=== PATIENT | female | born 1975 | race Caucasian/White ===

== ENCOUNTER 2024-03-09 08:02 | Emergency (ER) | payer MEDICAID ==
[2024-03-09 08:17] VITALS: BP 151/110; O2SAT 100
--- NOTE | 2024-03-09 08:31 | ED Physician Documentation ---
History of Present Illness - Stated complaint Stated Complaint: LOWER BCK PX/RT LEG PX - Chief complaint Chief Complaint: Ext Problem - History obtained from History obtained from: Patient - Additonal information Additional information: She presents with a week of right-sided sciatica which he has had before. Pain is in the low back and radiating into the buttock and posterior thigh. Is worse with twisting or bending. There was no injury. She denies weakness, numbness, tingling, saddle anesthesia, fevers, IV drug use. She does tell me about a more chronic issue going on for over a year where she broke ribs related to a cough related to COVID and since then has random pains usually in her chest that feel like a band snapping. She just moved from [place] where she was seeing a nurse practitioner who is treating this and planning to refer her to spine surgery which has not been done and she queries as to local spine surgeons. 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) HEENT: Tonsil/Adenoidectomy - Present Medications Home Medications: Ambulatory Orders Medication Instructions Recorded Confirmed Ibuprofen 600 mg PO Q6HR PRN #20 tablet 05/13/14 12/06/14 Duloxetine HCl [Cymbalta] 60 mg PO 06/01/16 Carisoprodol [Soma] 350 mg PO QID PRN #12 tablet 03/09/24 Oxycodone HCl/Acetaminophen 1 - 2 each PO Q6H PRN #14 tablet 03/09/24 [Percocet 5-325 mg Tablet] predniSONE [Deltasone] 20 mg PO [id number] #21 tab 03/09/24 - Allergies Allergies/Adverse Reactions: Allergies Allergy/AdvReac Type Severity Reaction Status Date / Time Penicillins Allergy Intermediate Itching Verified 03/09/24 08:15 Sulfa (Sulfonamide Allergy Mild mouth sores Verified 03/09/24 08:15 Antibiotics) - Social History Does the pt smoke?: Yes Smoking Status: Current every day smoker Does the pt drink ETOH?: Yes Does the pt have substance abuse?: No - Immunizations Immunizations are current?: No Immunizations: TDAP >10years/unknown - POLST Patient has POLST: No PD ED PE NORMAL - Vitals Vital signs reviewed: Yes - General General: Alert and oriented X 3, No acute distress - Cardiac Cardiac: RRR, No murmur - Respiratory Respiratory: No respiratory distress, Clear bilaterally - Abdomen Abdomen: Normal bowel sounds, Soft, Non tender - Back Back: No spinal TTP, Other (The patient has equal and normal Achilles and yanez llar reflexes bilaterally. Normal sensation in all areas of the legs. Patient denies saddle anesthesia. Normal strength in flexion-extension at the ankles, knees, and flexion of the hips.) Results - Vitals Vitals: Vital Signs - 24 hr 03/09/24 08:10 Temperature 36.4 C L Heart Rate 116 H Respiratory 18 Rate Blood Pressure 151/110 H O2 Saturation 100 Oxygen O2 Source Room air PD Medical Decision Making - ED course ED course: This patient has seemingly uncomplicated musculoskeletal back pain. The patient has no "red flags." Specifically denies IV drug use, fevers, incontinence, saddle anesthesia. Spinal epidural abscess was considered, given that the patient has no fever, is not diabetic, has no spinal tenderness, does not use IV drugs, and has no bilateral neurologic symptoms, the diagnosis of spinal epidural abscess is considered exceedingly unlikely. Departure - Departure Disposition: 01 Home, Self Care Clinical Impression: Sciatica Condition: Good Record reviewed to determine appropriate education?: Yes Instructions: ED Sciatica Prescriptions: predniSONE [Deltasone] 20 mg PO [id number] #21 tab Oxycodone HCl/Acetaminophen [Percocet 5-325 mg Tablet] 1 - 2 each PO Q6H PRN #14 tablet PRN Reason: pain Carisoprodol [Soma] 350 mg PO QID PRN #12 tablet PRN Reason: Spasms Comments: I sent your prescriptions electronically to the [facility] in [place]. For your more chronic issues, 2 spine surgeons I like in the area are: 1. Jesus Waggoner DO in [place] 2. Jagdeep Leahy MD in [place]. Call your doctor to arrange a follow-up appointment, make the next available appointment. In the interim, return anytime if worse or if new symptoms develop. I am prescribing a short course of narcotic pain medication for you. These are potentially dangerous and addictive medications that should be used carefully. These medications may constipate you. Take an maxg-ont-fmukbdo stool softener (docusate) twice daily with plenty of water while taking these medications. If you go 24 hours without a bowel movement, take ysih-lbq-wlsxmbj miralax, per package instructions. Do not drink or drive while taking these medications. If you received narcotic or sedating medications while in the emergency department, do not drive for 24 hours. Store this medication in a safe, secure place and out of reach of children. It is a violation of federal law to give or sell this medication to another person or to use in a manner other than prescribed. The ED will not refill narcotic prescriptions, including prescriptions lost or stolen. To dispose of unwanted medications: 1. [facility] provides a drop box for medication in pill form only (no liquids) 8:00 am to 4:30 p.m. Sunday-Sunday in the lobby of the [facility], [address] [place] [address]. Empty pills into ziplock bag before disposal. Call [phone] for information. 2.[employer] is a free service available to all [facility] residents. Go to [email or web address] Note that many narcotic pain relievers also contain Tylenol/acetaminophen. Please ensure that your total dose of acetaminophen from all sources does not exceed 3 g (3000 mg) per day. Forms: PCP List
== END 2024-03-09 08:39 | disposition home or self-care (01) ==
LOC: ED 08:02
DX: M54.41 Lumbago with sciatica, right side (principal); F17.200 Nicotine dependence, unspecified, uncomplicated
CPT/HCPCS: 99283

== ENCOUNTER 2024-03-26 07:58 | Emergency (ER) | payer MEDICAID ==
--- NOTE | 2024-03-26 08:20 | ED Physician Documentation ---
PD HPI URI - Stated complaint Stated Complaint: COUGHING, DIFFICULTY BREATHING, CHEST PX - Chief complaint Chief Complaint: Resp - History obtained from History obtained from: Patient - History of Present Illness Timing - onset: Yesterday, How many days ago (2) Timing duration: Days (2) Timing details: Abrupt onset, Still present Associated symptoms: Chills, Nasal congestion, Dry cough, Dyspnea, NVD Contributing factors: Sick contact, COPD / asthma. No: Immunocompromised Recently seen: Emergency Dept (for knee pain) Review of Systems Constitutional: reports: Chills, Myalgias, Fatigue Nose: reports: Rhinorrhea / runny nose, Congestion Throat: reports: Sore throat Respiratory: reports: Cough GI: reports: Nausea. denies: Vomiting, Diarrhea Neurologic: reports: Generalized weakness. 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) HEENT: Tonsil/Adenoidectomy - Present Medications Home Medications: Ambulatory Orders Medication Instructions Recorded Confirmed Ibuprofen 600 mg PO Q6HR PRN #20 tablet 05/13/14 03/26/24 Carisoprodol [Soma] 350 mg PO QID PRN #12 tablet 03/09/24 03/26/24 Oxycodone HCl/Acetaminophen 1 - 2 each PO Q6H PRN #14 tablet 03/09/24 03/26/24 [Percocet 5-325 mg Tablet] Albuterol Sulf [Ventolin Hfa 2 puffs INH QID #1 each 03/26/24 Inhaler] Benzonatate [Tessalon] 100 mg PO TID PRN #20 cap 03/26/24 Doxycycline Monohydrate [Avidoxy] 100 mg PO BID 03/26/24 03/26/24 Fluticasone Propion/Salmeterol 1 each IH BID #1 each 03/26/24 [Fluticasone-Salmeterol 250-50] Gabapentin [Neurontin] 600 mg PO TID 03/26/24 03/26/24 HYDROcod/ACETAM 5/325 [Sturkie 5/325] 1 ea PO Q6H PRN #20 tablet 03/26/24 Ibuprofen [Motrin] 600 mg PO TID PRN #25 tab 03/26/24 Losartan Potassium 50 mg PO DAILY 03/26/24 03/26/24 Lovastatin 10 mg PO DAILY 03/26/24 03/26/24 Ondansetron Odt [Zofran] 4 mg TL Q6H PRN #20 tablet 03/26/24 dexAMETHasone [Decadron] 4 mg PO DAILY #7 tablet 03/26/24 tiZANidine [Zanaflex] 4 mg PO TID 03/26/24 03/26/24 - Allergies Allergies/Adverse Reactions: Allergies Allergy/AdvReac Type Severity Reaction Status Date / Time Penicillins Allergy Intermediate Itching Verified 03/26/24 08:15 Sulfa (Sulfonamide Allergy Mild mouth sores Verified 03/26/24 08:15 Antibiotics) - Social History Does the pt smoke?: Yes Smoking Status: Current every day smoker Does the pt drink ETOH?: Yes Does the pt have substance abuse?: No - Immunizations Immunizations are current?: No Immunizations: TDAP >10years/unknown - POLST Patient has POLST: No PD ED PE NORMAL - Vitals Vital signs reviewed: Yes - General General: Alert and oriented X 3, No acute distress, Well developed/nourished - HEENT HEENT: Pharynx benign - Neck Neck: Supple, no meningeal sign, No adenopathy - Cardiac Cardiac: RRR, No murmur - Respiratory Respiratory: Clear bilaterally - Abdomen Abdomen: Soft, Non tender - Derm Derm: Normal color, Warm and dry Results - Vitals Vitals: Vital Signs - 24 hr 03/26/24 10:52 Temperature 36.5 C Heart Rate 103 H Respiratory 20 Rate Blood Pressure 113/74 O2 Saturation 100 Oxygen O2 Source Room air - Labs Labs: Laboratory Tests 03/26/24 09:02 Nasal Adenovirus (PCR) NOT DETECTED Nasal B. parapertussis DNA (PCR) NOT DETECTED Nasal Coronavir 229E PCR NOT DETECTED Nasal Coronavir HKU1 PCR NOT DETECTED Nasal Coronavir NL63 PCR NOT DETECTED Nasal Coronavir OC43 PCR NOT DETECTED Nasal Enterovir/Rhinovir PCR DETECTED A Nasal Influenza B PCR NOT DETECTED Nasal Influenza A PCR NOT DETECTED Nasal Parainfluen 1 PCR NOT DETECTED Nasal Parainfluen 2 PCR NOT DETECTED Nasal Parainfluen 3 PCR NOT DETECTED Nasal Parainfluen 4 PCR NOT DETECTED Nasal RSV (PCR) NOT DETECTED Nasal B.pertussis DNA PCR NOT DETECTED Nasal C.pneumoniae (PCR) NOT DETECTED Mark Human Metapneumo PCR NOT DETECTED Nasal M.pneumoniae (PCR) NOT DETECTED Nasal SARS-CoV-2 (PCR) NOT DETECTED - Rads (name of study) chest Relevant Findings:: Prelim report reviewed (minimal bibasilar atelectasis), EMP independent interpretation of test PD Medical Decision Making - ED course Complexity details: reviewed results (chest xray and viral panel: Rhinovirus. ), considered differential, d/w patient Departure - Departure Disposition: Home, Self Care Clinical Impression: Upper respiratory infection, Reactive airway disease with acute exacerbation, Acute costochondritis Condition: Stable Record reviewed to determine appropriate education?: Yes Instructions: ED URI Viral W Wheezing Prescriptions: dexAMETHasone [Decadron] 4 mg PO DAILY #7 tablet Fluticasone Propion/Salmeterol [Fluticasone-Salmeterol 250-50] 1 each IH BID #1 each Ibuprofen [Motrin] 600 mg PO TID PRN #25 tab PRN Reason: Pain HYDROcod/ACETAM 5/325 [Sturkie 5/325] 1 ea PO Q6H PRN #20 tablet PRN Reason: Pain Benzonatate [Tessalon] 100 mg PO TID PRN #20 cap PRN Reason: Cough Albuterol Sulf [Ventolin Hfa Inhaler] 2 puffs INH QID #1 each Ondansetron Odt [Zofran] 4 mg TL Q6H PRN #20 tablet PRN Reason: Nausea / Vomiting Comments: Your chest x-ray does not show any pneumonia. There is some not full expansion in the lower parts presume consistent with the costochondritis and hurting to take deep breaths. Hopefully use of the inhaler as well as some anti-inflammatories and pain medicine will help with that so that you get better airflow and less trouble breathing. Use the albuterol inhaler 2 to 3 puffs 4 times daily regularly for the next week to 10 days. Decadron steroid anti-inflammatory daily for a week. Add benzonatate/Tessalon if needed for cough. He would likely benefit from a baseline longer-term inhaler as well so I wrote for 1 called Advair (fluticasone/salmeterol (. Tylenol every 4-6 hours if needed for pains or hydrocodone/acetaminophen if needed for worse pain. This can also be used as a cough suppressant 2. Small frequent fluids and stay well-hydrated. Ondansetron if needed for nausea. I sent your prescriptions to the [facility] pharmacy. Follow-up with primary care as an planned. Your respiratory viral panel test is still pending. We can call you with the results when we get them. I am prescribing a short course of narcotic pain medication for you. These are potentially dangerous and addictive medications that should be used carefully. These medications may constipate you. Take an zuwl-lcv-tjvsvzh stool softener such as docusate twice daily with plenty of water while taking these medications. If you go 24 hours without a bowel movement, take ruwq-grr-eihldqn MiraLAX, per package instructions. Do not drink or drive while taking these medications. If you received narcotic or sedating medications while in the emergency department do not drive for 24 hours. Store this medication in a safe, secure place and out of reach of children. It is a violation of federal law to give or sell this medication to another person or to use in a manner other than prescribed. The ED will not refill narcotic prescriptions, including prescriptions lost or stolen. You can dispose of unwanted medications at the [facility]'s office or at several pharmacies such as [facility]. Forms: PCP List Discharge Date/Time: 03/26/24 10:53
[2024-03-26] MEDS: ONDANSETRON ODT 4 MG TABLET TL STA (08:59)
[2024-03-26] MEDS: dexAMETHasone 4 MG TABLET PO STA (08:59)
[2024-03-26] MEDS: oxyCODONE 5 MG TABLET PO STA (08:59)
[2024-03-26] MEDS: diphenhydrAMINE ELIXIR 25 MG/10 ML UDC PO STA (09:00)
[2024-03-26] MEDS: IPRATROPIUM/ALBUTEROL 3 ML NEB INH STA (09:04)
--- NOTE | 2024-03-26 09:14 | XRAY Report ---
PROCEDURE: Chest 1V INDICATIONS: cough/dyspnea TECHNIQUE: One view of the chest was acquired. COMPARISON: 12/16/2014. FINDINGS: Surgical changes and devices: None. Lungs and pleura: No pleural effusions or pneumothorax. Minimal patchy bibasilar atelectasis. Mediastinum: Mediastinal contours appear normal. Heart size is normal. Bones and chest wall: No suspicious bony lesions. Overlying soft tissues appear unremarkable. IMPRESSION: Minimal patchy bibasilar atelectasis. Reviewed by: Damon Pace MD on 03/26/2024 9:13 AM PDT Approved by: Damon Pace MD on 03/26/2024 9:13 AM PDT Station ID: [id number]
[2024-03-26 10:04] LABS: B. PARAPERTUSSIS- RESP PCR PAN NOT DETECTED; B. PERTUSSIS- RESP PCR PANEL NOT DETECTED; C. PNEUMONIAE- RESP PCR PANEL NOT DETECTED; CORONAVIRUS 229E-RESP PCR NOT DETECTED; CORONAVIRUS HKU1-RESP PCR NOT DETECTED; CORONAVIRUS NL63-RESP PCR NOT DETECTED; CORONAVIRUS OC43-RESP PCR NOT DETECTED; HUMAN METAPNEUMOVIRUS NOT DETECTED; INFLUENZA A- RESP PCR PANEL NOT DETECTED; INFLUENZA B - RESP PCR PANEL NOT DETECTED; M. PNEUMONIAE- RESP PCR PANEL NOT DETECTED; PARAINFLUENZA VIRUS 1 NOT DETECTED; PARAINFLUENZA VIRUS 2 NOT DETECTED; PARAINFLUENZA VIRUS 3 NOT DETECTED; PARAINFLUENZA VIRUS 4 NOT DETECTED; RHINOVIRUS/ENTEROVIRUS DETECTED; RSV- RESP PCR PANEL NOT DETECTED; SARS-CoV-2 -RESP PCR PANEL NOT DETECTED
[2024-03-26 11:02] VITALS: BP 113/74; O2SAT 100
== END 2024-03-26 10:53 | disposition home or self-care (01) ==
LOC: ED 07:58
DX: M94.0 Chondrocostal junction syndrome [Tietze] (principal); J45.909 Unspecified asthma, uncomplicated; J06.9 Acute upper respiratory infection, unspecified; B34.8 Other viral infections of unspecified site; F17.200 Nicotine dependence, unspecified, uncomplicated
CPT/HCPCS: 71045; 87633; 94640; 94664; 99283; 99284; A9270; J8540; Q0162

== ENCOUNTER 2025-01-13 01:02 | Observation (INO) ==
[2025-01-13] MEDS ORDERED: iohexoL-300 100 ML VIAL ONE (01:45)
[2025-01-13 02:03] LABS: BASOPHILS % (AUTO) 0.4 %; EOSINOPHILS # (AUTO) 0.2 10^3/uL (0.0-0.7); EOSINOPHILS % (AUTO) 1.9 %; HCT - HEMATOCRIT 34.2 % (37.0-47.0); HGB - HEMOGLOBIN 10.5 g/dL (12.0-16.0); LYMPHOCYTES # (AUTO) 1.8 10^3/uL (1.5-3.5); LYMPHOCYTES % (AUTO) 17.1 %; MEAN CORPUSCULAR HEMOGLOBIN 30.1 pg (27.0-31.0); MEAN CORPUSCULAR HGB CONC 30.7 g/dL (32.0-36.0); MEAN PLATELET VOLUME 9.8 fL (7.9-10.8); MONOCYTES # (AUTO) 0.8 10^3/uL (0.0-1.0); MONOCYTES % (AUTO) 7.8 %; NEUTROPHILS # (AUTO) 7.8 10^3/uL (1.5-6.6); NEUTROPHILS % (AUTO) 72.6 %; PLT - PLATELET COUNT 449 10^3/uL (130-450); RED BLOOD COUNT 3.49 10^6/uL (4.20-5.40); RED CELL DISTRIBUTION WIDTH 13.8 % (12.0-15.0); WHITE BLOOD COUNT 10.7 x10^3/uL (4.8-10.8)
[2025-01-13] MEDS: SODIUM CHLORIDE 0.9% 1,000 ML IV STA (02:07)
[2025-01-13] MEDS: KETOROLAC 30 MG/ML VIAL IVP STA (02:07)
[2025-01-13 02:15] LABS: MAGNESIUM 2.3 mg/dL (1.7-2.3)
[2025-01-13 02:21] LABS: ALBUMIN 3.7 g/dL (3.2-5.5); ALBUMIN/GLOBULIN RATIO 1.3 (1.0-2.2); ALKALINE PHOSPHATASE 68 IU/L (42-121); ALT ALANINE AMINOTRANSFERASE 9 IU/L (10-60); AST ASPARTATE AMINOTRANSFERASE 14 IU/L (10-42); BILIRUBIN,TOTAL 0.2 mg/dL (0.2-1.0); BUN - BLOOD UREA NITROGEN 19 mg/dL (6-20); CALCIUM 9.2 mg/dL (8.5-10.3); CARBON DIOXIDE - CO2 22 mmol/L (21-32); CHLORIDE 103 mmol/L (101-111); CREATININE 1.5 mg/dL (0.6-1.3); ETOH - ETHANOL < 10.0 mg/dL; GFR - MDRD 37 (>89); GLUCOSE 135 mg/dL (74-104); LIPASE 12 U/L (11-82); POTASSIUM 3.8 mmol/L (3.5-4.5); SODIUM 133 mmol/L (135-145); TOTAL PROTEIN 6.5 g/dL (6.4-8.9)
[2025-01-13] MEDS: iohexoL-300 100 ML VIAL IVP ONE (02:41)
[2025-01-13 03:51] LABS: BILIRUBIN,URINE NEGATIVE (NEGATIVE); GLUCOSE, URINE (UA) NEGATIVE (NEGATIVE); KETONES,URINE (UA) NEGATIVE (NEGATIVE); LEUKOCYTE ESTERASE, URINE TRACE (NEGATIVE); NITRITE,URINE NEGATIVE (NEGATIVE); OCCULT BLOOD,URINE NEGATIVE (NEGATIVE); PROTEIN,URINE NEGATIVE (NEGATIVE); UROBILINOGEN,URINE 0.2 (NORMAL) E.U./dL (NORMAL)
[2025-01-13 03:52] LABS: CLARITY,URINE CLEAR (CLEAR)
[2025-01-13 04:00] LABS: BACTERIA,URINE Few /HPF (None Seen); RBC,URINE 0-5 /HPF (0-5); SQUAMOUS EPITHELIAL CELL,UR MANY Squamous (<= Few)
[2025-01-13 04:02] LABS: AMPHETAMINE SCREEN,URINE NEGATIVE (NEGATIVE); BARBITURATE SCREEN,UR NEGATIVE (NEGATIVE); BENZODIAZEPINES SCREEN, URINE NEGATIVE (NEGATIVE); BUPRENORPHINE SCREEN, URINE NEGATIVE (NEGATIVE); COCAINE SCREEN URINE NEGATIVE (NEGATIVE); METHADONE SCREEN, URINE NEGATIVE (NEGATIVE); METHAMPHETAMINES SCREEN, URINE NEGATIVE (NEGATIVE); OPIATE SCREEN, URINE NEGATIVE (NEGATIVE); OXYCODONE SCREEN, URINE NEGATIVE (NEGATIVE); THC CANNABINOID SCREEN, URINE NEGATIVE (NEGATIVE); TRICYCLIC ANTIDEPRESSANT,URINE POSITIVE (NEGATIVE)
--- NOTE | 2025-01-13 04:09 | ED Physician Documentation ---
History of Present Illness Stated complaint Stated Complaint: LOW BACK PX Chief complaint Chief Complaint: Back Pain Additonal information Additional information: HPI from EMS, patient. Patient called 911 tonight and EMS says nature of call was concern patient was having a stroke. On their assessment, they found patient confused and having difficulty with answering questions with clear/concise answers. En route to ED, patient eventually told EMS her chief concern is back pain. On my HPI, patient is a difficult historian, offering various c/o over different (and mostly unclear) timeframes. She tells me she is having difficulty with word-finding and difficulty expressing/verbalizing thoughts. She tells me "I can't remember anything for more than a few seconds", "I can't get the words right". Also says "I've been falling a lot" without specific recollection of these falls. She does also c/o low back pain, also difficulty providing timeframe regarding onset; she initially tells me back pain started yesterday, then says she has spoken with other doctors about her back pain and uses a walker because of the back pain. She c/o left-sided dental pain, again of unclear timeframe. Meds/Allgy Home Medications Ambulatory Orders Medication Instructions Recorded Confirmed ibuprofen 600 mg tablet 600 mg PO Q6HR PRN Pain #20 tabs 05/13/14 03/26/24 carisoprodol 350 mg tablet (Soma) 350 mg PO QID PRN Spasms #12 tabs 03/09/24 03/26/24 albuterol sulfate 90 mcg/actuation 2 puff inhalation QID #1 ea 03/26/24 aerosol inhaler (Ventolin HFA) benzonatate 100 mg capsule 100 mg PO TID PRN Cough #20 caps 03/26/24 dexamethasone 4 mg tablet 4 mg PO DAILY #7 tabs 03/26/24 doxycycline monohydrate 100 mg 100 mg PO BID 03/26/24 03/26/24 tablet (Avidoxy) fluticasone 250 mcg-salmeterol 50 1 ea IH BID #1 ea 03/26/24 mcg/dose blistr powdr for inhalation gabapentin 600 mg tablet 600 mg PO TID 03/26/24 03/26/24 (Neurontin) hydrocodone 5 mg-acetaminophen 325 1 ea PO Q6H PRN Pain #20 tabs 03/26/24 mg tablet losartan 25 mg tablet 50 mg PO DAILY 03/26/24 03/26/24 lovastatin 10 mg tablet 10 mg PO DAILY 03/26/24 03/26/24 ondansetron 4 mg disintegrating 4 mg translingual Q6H PRN Nausea / 03/26/24 tablet Vomiting #20 tabs tizanidine 4 mg tablet 4 mg PO TID 03/26/24 03/26/24 oxycodone-acetaminophen 5 mg-325 1 tab PO Q8H PRN pain #10 tabs 07/18/24 mg tablet (Percocet) cephalexin 500 mg capsule 500 mg PO Q8H #30 caps 10/29/24 lidocaine HCl 4 % (40 mg/mL) 1 applic mucous membrane BID PRN 10/30/24 mucosal solution pain #50 mL cefdinir 300 mg capsule 300 mg PO BID #14 caps 12/26/24 Allergies Allergies Allergy/AdvReac Type Severity Reaction Status Date / Time Penicillins Allergy Intermediate Itching Verified 01/13/25 01:14 codeine Allergy Mild Rash Verified 01/13/25 01:14 Sulfa (Sulfonamide Allergy Mild mouth sores Verified 01/13/25 01:14 Antibiotics) PFSH Active Problems All Active Problems (Updated 01/13/25 @ 04:31 by Buck Hdez MD) Confused (Acute) Sinusitis (Acute) Memory deficit (Acute) Left shoulder pain (Acute) Medical History Medical History (Updated 01/13/25 @ 04:31 by Buck Hdez MD) Back pain Abdominal pain Dehydration Diarrhea Jaw pain Dental abscess Pain, dental Alcohol intoxication Chronic pain Anxiety Chest pain Headache Surgical History Surgical History (Updated 07/18/24 @ 10:35 by JACKIE Tong, BSN) S/P tooth extraction Social History Social History Smoking Status: Current every day smoker How many cigarettes a day do you smoke? (20 cigarettes=1 Pk): 6 Second hand tobacco smoke exposure: No Patient requests smoking cessation consult: Yes Initiate information on smoking cessation: No Living arrangement: At home Relationship: Child Level: Assisted Do you feel safe in your home environment?: Yes Suffered physical, verbal, emotional, or financial abuse?: No History of Abuse: No Frequency: Occasional Substance Use: cannabis (any form) and opiods/painkillers Substance Use Details: stop cannabis for a month POLST Patient has POLST: No Exam Exam Vital Signs: Vital Signs x48h Temp Pulse Resp BP Pulse Ox 01/13/25 04:00 78 22 103/67 100 01/13/25 02:17 72 20 100/56 L 100 01/13/25 01:43 78 20 93/53 L 100 01/13/25 01:06 36.1 C L 79 18 82/50 L 97 Constitutional normal general appearance, no apparent distress, limitations noted (altered mental status) and alert tangential, some difficulty with conversation such as with word-finding and recall of recent events HENMT head/scalp atraumatic Eyes PERRL, EOMs intact bilaterally and normal visual allan by confrontation Respiratory breath sounds equal bilaterally and clear to auscultation bilaterally Cardiovascular normal heart rate noted, regular rhythm noted, no gallop, no rub, no murmur and no edema Gastrointestinal abdomen soft to palpation, nontender to palpation and nondistended 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, no movement abnormality noted, no focal motor deficit noted, no sensory deficits noted, speech abnormality noted and GCS 15 Psychiatry oriented x3, thought process abnormality noted (loose associations) and (tangential) and memory abnormal (short term memory loss) Results Vitals Vitals: Vital Signs - 24 hr 01/13/25 01:06 01/13/25 01:17 01/13/25 01:43 Temperature 36.1 C L Temperature Source Tympanic Pulse Rate 79 78 Respiratory Rate 18 20 Blood Pressure 82/50 L 93/53 L O2 Saturation 97 100 Oxygen Delivery Method Room Air O2 Source Room air Room air Pain Intensity 8 01/13/25 02:07 01/13/25 02:17 01/13/25 03:24 Temperature Temperature Source Pulse Rate 72 Respiratory Rate 20 Blood Pressure 100/56 L O2 Saturation 100 Oxygen Delivery Method O2 Source Room air Pain Intensity 8 4 01/13/25 04:00 Temperature Temperature Source Pulse Rate 78 Respiratory Rate 22 Blood Pressure 103/67 O2 Saturation 100 Oxygen Delivery Method O2 Source Room air Pain Intensity Oxygen O2 Source Room air Labs Labs: Laboratory Tests 01/13/25 01/13/25 01:55 03:40 WBC 10.7 RBC 3.49 L Hgb 10.5 L Hct 34.2 L MCV 98.0 MCH 30.1 MCHC 30.7 L RDW 13.8 Plt Count 449 MPV 9.8 Neut # (Auto) 7.8 H Lymph # (Auto) 1.8 [place] # (Auto) 0.8 Eos # (Auto) 0.2 Baso # (Auto) 0.0 Absolute Nucleated RBC 0.00 Nucleated RBC % 0.0 Sodium 133 L Potassium 3.8 Chloride 103 Carbon Dioxide 22 Anion Gap 8.0 BUN 19 Creatinine 1.5 H Estimated GFR (MDRD) 37 L Glucose 135 H Calcium 9.2 Magnesium 2.3 Total Bilirubin 0.2 AST 14 ALT 9 L Alkaline Phosphatase 68 Total Protein 6.5 Albumin 3.7 Globulin 2.8 Albumin/Globulin Ratio 1.3 Triglycerides 104 Cholesterol 125 LDL Cholesterol, Calc 60 VLDL Cholesterol 21 HDL Cholesterol 44 L LDL/HDL Ratio 1.4 Cholesterol/HDL Ratio 2.8 Lipase 12 Vitamin B12 124 L Folate 7.0 TSH 10.81 H Urine Color YELLOW Urine Clarity CLEAR Urine pH 6.0 Ur Specific [place] <=1.005 Urine Protein NEGATIVE Urine Glucose (UA) NEGATIVE Urine Ketones NEGATIVE Urine Occult Blood NEGATIVE Urine Nitrite NEGATIVE Urine Bilirubin NEGATIVE Urine Urobilinogen 0.2 (NORMAL) Ur Leukocyte Esterase TRACE H Urine RBC 0-5 Urine WBC 4-5 Ur Squamous Epith Cells MANY Squamous H Urine Bacteria Few Ur Microscopic Review INDICATED Urine Culture Comments NOT INDICATED Urine Opiates Screen NEGATIVE Ur Buprenorphine Scrn NEGATIVE Ur Oxycodone Screen NEGATIVE Urine Methadone Screen NEGATIVE Ur Barbiturates Screen NEGATIVE Ur Tricyclics Screen POSITIVE H Ur Phencyclidine Scrn NEGATIVE Ur Amphetamine Screen NEGATIVE U Methamphetamines Scrn NEGATIVE U Benzodiazepines Scrn NEGATIVE Urine Cocaine Screen NEGATIVE U Cannabinoids Screen NEGATIVE Ur Drug Screen Comment CUTOFF CONC BELOW: Ethyl Alcohol < 10.0 Rads (name of study) CTH: Relevant Findings:: Prelim report reviewed and See rad report CTA head/neck: Relevant Findings:: Prelim report reviewed and See rad report lumbar xrays: Relevant Findings:: Prelim report reviewed and See rad report PD Medical Decision Making ED course Complexity details: reviewed old records, reviewed results, re-evaluated patient, considered differential and d/w patient ED course: EMS report included information concerning for alcohol use (they noted empty hard lemonade bottles in the house) and that patient's son indicated patient sometimes drinks alcohol along with prescription pain medication. However, on this ED visit her serum ethanol level is <10 and her UDS is only positive for tricycylics. She is not exhibiting slurred speech on my exam but is having difficulty with word-finding and seems to be having varying degrees of memory deficits at times. No lateralizing c/o nor findings on exam. She is in NAD throughout ED stay. Unremarkable CTH, CTA head/neck (left sinus opacification noted which was also seen on CTH last month). Plain-film lumbar xrays are undertaken due to patient's c/o back pain (note that despite this c/o, she sits up and then lies back without any difficulty or apparent painful discomfort); no concerning nor diagnostic findings on these images. No concerning findings on CBC (hgb 10.5, unchanged from previous result), ER abdominal panel (creatinine 1.5, GFR 37; these are similar to results from ED visit 3 months ago; previous results were normal but these previous results (before the October 2024 ED visit) are from [id number]. On reevaluation, results d/w patient. She was given toradol early in stay for her c/o back pain (she was specifically requesting pain medication for this). On reevaluation, she is asleep but awakens to verbal combined with gentle tactile (shoulder shake). She tells me the toradol did not help her pain and is again requesting pain medication. I offered tylenol which she declines; I explained that she is still exhibiting some difficulty with word-finding and short-term recall and I did not want to obscure the clinical picture with introduction of narcotic/opiate pain medication. Patient expresses understanding of this. I explained that plan is to admit to [facility] for further observation and testing (such as MRI) and patient is agreeable. I discussed this case with [facility] practitioner who agrees with this plan. My suspicion for CVA is low but not negligible. Patient was hypotensive early in ED stay, unclear etiology. This responded to 1 liter NS IV and she had normotensive readings for remainder of ED stay. Of note, patient was evaluated in this ED 10/29/24 for c/o ongoing dental pain and ED MD note indicates patient was found by ED RN during triage process to be confused and oriented x 2 with hypotension but by the time of the ED MD evaluation the patient was AAOx3, no longer confused nor hypotensive, was rx keflex for dental infection. Patient was then evaluated in this ED 12/26/24 for 3 months of "on and off confused and forgetful" (per ED MD note) along with recurrent back pain, unremarkable w/u except opacified sinus on CTH and thus rx cefdinir. Discharge Plan Discharge Patient Disposition: ED Place in Observation Condition: Stable Clinical Impression: Confused Interventions: ED Admission Assessment Last Done: 01/13/25 05:53 NIHSS Level of Consciousness Level of consciousness: (1) Not alert, but arousable by minor stimulation to obey, or answer LOC Questions: (0) Answers both Q's correct LOC Commands: (0) Performs both correctly Gaze Best Gaze: (0) Normal Visual Visual: (0) No loss Facial Palsy Facial Palsy: (0) Normal, symmetrical movement Motor Arms (both separate) Motor Arm (right): (0) No drift Motor Arm (left): (0) No drift Motor Legs (both separate) Motor Leg (right): (0) No drift Motor Leg (left): (0) No drift Limb Ataxia Limb Ataxia: (2) Present in 2 limbs Sensory Sensory: (0) Normal Best Language Best Language: (1) [id number] (able to name pictured objects and read words/sentences rapidly and accurately; however, she is slow to describe kitchen scene with some difficulty word-finding and descriptions ) Dysarthria Dysarthria: (0) Normal Extinction and Inattention (formally neg Extinction and inattention: (0) No abnormality Total Score/Results Total Score/Result: 4
[2025-01-13] MEDS ORDERED: IBUPROFEN 400 MG TABLET PO PRN (05:11)
--- NOTE | 2025-01-13 05:25 | HISTORY & PHYSICAL EXAMINATION ---
Chief Complaint Chief Complaint Chief Complaint: ams, weakness, falls History of Present Illness History of Present Illness HPI Comment/Other: pt presents to hospital d/t reports of weakness, confusion, and frequent falls at home. pt reports waxing and waning confusion with slurred speech along with tingling and weakness of hands over past several months. denies any inciting factors and states she has not reported her symptoms to her pcp as she feels "embarrassed." she has not seen a neurologist as well. no recent fevers or chills. no chest pain. she smokes 0.5 ppd. denies any etoh or drug usage. she has been prescribed multiple pain meds and muscle relaxers, but states she does not take them all. she states that over last 24 hours, she has had difficulty with word finding and feels like she has "brain fog." Review of Systems though confused and tangential, able to answer questions Status of ROS: 10 or more systems reviewed and unremarkable except as noted in history and below PFSH Active Problems All Active Problems (Updated 01/13/25 @ 04:31 by Buck Hdez MD) Confused (Acute) Sinusitis (Acute) Memory deficit (Acute) Left shoulder pain (Acute) Medical History Medical History (Updated 01/13/25 @ 04:31 by Buck Hdez MD) Back pain Abdominal pain Dehydration Diarrhea Jaw pain Dental abscess Pain, dental Alcohol intoxication Chronic pain Anxiety Chest pain Headache Surgical History Surgical History (Updated 07/18/24 @ 10:35 by JACKIE Tong, BSN) S/P tooth extraction Social History Social History Smoking Status: Current every day smoker Living arrangement: At home Relationship: Do you feel safe in your home environment?: Yes Suffered physical, verbal, emotional, or financial abuse?: No History of Abuse: No Frequency: Occasional POLST Patient has POLST: No Meds/Allgy Home Medications Ambulatory Orders Medication Instructions Recorded Confirmed ibuprofen 600 mg tablet 600 mg PO Q6HR PRN Pain #20 tabs 05/13/14 03/26/24 carisoprodol 350 mg tablet (Soma) 350 mg PO QID PRN Spasms #12 tabs 03/09/24 03/26/24 albuterol sulfate 90 mcg/actuation 2 puff inhalation QID #1 ea 03/26/24 aerosol inhaler (Ventolin HFA) benzonatate 100 mg capsule 100 mg PO TID PRN Cough #20 caps 03/26/24 dexamethasone 4 mg tablet 4 mg PO DAILY #7 tabs 03/26/24 doxycycline monohydrate 100 mg 100 mg PO BID 03/26/24 03/26/24 tablet (Avidoxy) fluticasone 250 mcg-salmeterol 50 1 ea IH BID #1 ea 03/26/24 mcg/dose blistr powdr for inhalation gabapentin 600 mg tablet 600 mg PO TID 03/26/24 03/26/24 (Neurontin) hydrocodone 5 mg-acetaminophen 325 1 ea PO Q6H PRN Pain #20 tabs 03/26/24 mg tablet losartan 25 mg tablet 50 mg PO DAILY 03/26/24 03/26/24 lovastatin 10 mg tablet 10 mg PO DAILY 03/26/24 03/26/24 ondansetron 4 mg disintegrating 4 mg translingual Q6H PRN Nausea / 03/26/24 tablet Vomiting #20 tabs tizanidine 4 mg tablet 4 mg PO TID 03/26/24 03/26/24 oxycodone-acetaminophen 5 mg-325 1 tab PO Q8H PRN pain #10 tabs 07/18/24 mg tablet (Percocet) cephalexin 500 mg capsule 500 mg PO Q8H #30 caps 10/29/24 lidocaine HCl 4 % (40 mg/mL) 1 applic mucous membrane BID PRN 10/30/24 mucosal solution pain #50 mL cefdinir 300 mg capsule 300 mg PO BID #14 caps 12/26/24 Allergies Allergies Allergy/AdvReac Type Severity Reaction Status Date / Time Penicillins Allergy Intermediate Itching Verified 01/13/25 01:14 codeine Allergy Mild Rash Verified 01/13/25 01:14 Sulfa (Sulfonamide Allergy Mild mouth sores Verified 01/13/25 01:14 Antibiotics) Exam Exam Vital Signs: Vital Signs x48h Temp Pulse Resp BP Pulse Ox 01/13/25 04:00 78 22 103/67 100 01/13/25 02:17 72 20 100/56 L 100 01/13/25 01:43 78 20 93/53 L 100 01/13/25 01:06 36.1 C L 79 18 82/50 L 97 Constitutional normal general appearance and no apparent distress HENMT normocephalic and hearing grossly normal bilaterally Eyes EOMs intact bilaterally Respiratory no retractions and no use of accessory muscles details per ed charting Cardiovascular details per ed charting Neurology pt able to answer questions but gets tangential at times. some slurred speech and mild tremors noted on her hands. cooperative with exam. NAD. Conclusion/Plan Problem List (1) Confused: (2) Memory deficit: Lab Results 01/13/25 01:55 01/13/25 01:55 Other Other Results/Comments: pt with - - ams toxic metabolic encephalopathy vs tia/cva vs neurodegenerative disease (tremors) head imaging NEG for acute pathology pt with concern for polypharmacy --> pain meds and muscle relaxers held UDS NEG MRI and 2d echo ordered continue neuro checks UA NEG for obvious infection check tsh, b12, folate levels - SHANNAN elevated Cr and reduced GFR could be contributing to above gentle hydration continue encourage PO intake check renal sono avoid nephrotoxins as much as possible - generalized weakness in setting of above bedrest, fall precautions recommend PT eval and tx - tobacco use disorder pt smokes 0.5 ppd, needs to stop f/u labs, neuro status further orders per clinical course
[2025-01-13 05:32] LABS: CHOL/HDL RATIO 2.8 (<4.4); CHOLESTEROL 125 mg/dL; HDL CHOLESTEROL 44 mg/dL; LDL CHOLESTEROL,CALCULATED 60 mg/dL; LDL/HDL RATIO 1.4 (<4.4); TRIGLYCERIDES 104 mg/dL; VLDL CHOLESTEROL 21 mg/dL
[2025-01-13 05:48] LABS: THYROID STIMULATING HORMONE 10.81 uIU/mL (0.34-5.60)
[2025-01-13] MEDS: SODIUM CHLORIDE 0.9% 1,000 ML IV SCH (06:58)
[2025-01-13] MEDS: ALBUTEROL NEB 2.5 MG/3 ML INH SCH (07:24)
[2025-01-13] MEDS: BUDESONIDE 0.5 MG/2 ML NEB INH SCH (07:25)
[2025-01-13] MEDS: FORMOTEROL FUMARATE NEB 20 MCG/2 ML INH SCH (07:25)
--- NOTE | 2025-01-13 07:52 | CT Report ---
PROCEDURE: CT Angio Head/Neck INDICATIONS: AMS TECHNIQUE: After the administration of intravenous contrast, 1 mm thick sections acquired from the aortic arch t hrough the [place]. 3-dimensional tvmkpkc-tbructdju-dcdgpcytop (MIP) and/or volume renderin g reformats were acquired of the central intracranial vasculature and neck separately. For radiation dose reduction, the following was used: automated exposure control, adjustment of mA and/or kV acco rding to patient size. CONTRAST: 70cc [id number] COMPARISON: CT head from the same date. FINDINGS: Image quality: Suboptimal timing of the bolus of contrast. HEAD CT: CSF Spaces: Basal cisterns are patent. No extra-axial fluid collections. Ventricles are normal in size and shape. Brain: No significant abnormality is seen for scanning technique. Skull and face: Calvarium and visualized facial bones appear intact, without suspicious lesions. Sinuses: Left maxillary sinus is completely opacified. HEAD CT ANGIOGRAPHY: Anterior circulation: Intracranial internal carotid arteries are normal in size and flow. The flow within the paired anterior cerebral arteries is normal and symmetric. The flow within the middle cer ebral arteries is normal and symmetric. The anterior communicating artery is seen. No aneurysms are seen. Posterior circulation: Visualized portions of the vertebral arteries demonstrate normal caliber, and join to form a normal appearing basilar artery. Flow within the posterior cerebral arteries is norm al and symmetric. No aneurysms are seen. NECK CT ANGIOGRAPHY: Carotid system: The great vessels demonstrate a conventional anatomy as they arise from the aortic a rch. The origins of the common carotid arteries appear patent. The common carotid arteries demonstr ate normal caliber and courses. The bifurcation regions are both widely patent. The internal caroti d arteries demonstrate normal calibers and courses. Posterior circulation: The origins of the vertebral arteries both appear widely patent. The more shea perior extracranial portions of both vertebral arteries also demonstrate normal courses and calibers. They join to form a normal appearing basilar artery. Soft tissues: Visualized neck soft tissues demonstrate no suspicious abnormalities. Bones: No suspicious bony lesions. Visualized cervical spine appears normally aligned. IMPRESSION: 1. There is suboptimal timing bolus of arterial contrast. 2. No significant intracranial arterial abnormality is seen. 3. No significant abnormality is seen within the arteries of the neck. 4. Complete opacification of the left maxillary sinus. Findings are concordant with preliminary interpretation provided by [facility]. The estimate of stenosis included in the report of the imaging study was calculated using the NASCET method Reviewed by: Damon Pace MD on 01/13/2025 7:51 AM PDT Approved by: Damon Pace MD on 01/13/2025 7:51 AM PDT Station ID: [id number]
--- NOTE | 2025-01-13 07:53 | CT Report ---
PROCEDURE: CT Head W/O Stroke Protocol INDICATIONS: AMS TECHNIQUE: Noncontrast 4.5 mm thick angled axial sections acquired from the foramen magnum to the vertex, with c oronal reformats. For radiation dose reduction, the following was used: automated exposure control, adjustment of mA and/or kV according to patient size. COMPARISON: None. FINDINGS: Image quality: Excellent. CSF spaces: Basal cisterns are patent. No extra-axial fluid collections. Ventricles are normal in size and shape. Brain: No midline shift. No intracranial masses or hemorrhage. Go-white matter interface is norm al. Skull and face: Calvarium and visualized facial bones are intact, without suspicious lesions. Sinuses: Complete opacification of the left maxillary sinus. Other paranasal sinuses and mastoids are clear. IMPRESSION: No acute intracranial pathology. Left maxillary sinusitis, completely opacified. Findings are concordant with preliminary interpretation provided by [facility]. This study fulfills neurological imaging criteria for inclusion or exclusion of acute stroke therapie s based on available published neurological imaging guidelines. Reviewed by: Damon Pace MD on 01/13/2025 7:52 AM PDT Approved by: Damon Pace MD on 01/13/2025 7:52 AM PDT Station ID: [id number]
[2025-01-13 08:14] LABS: ESTIMATED AVERAGE GLUCOSE 117 mg/dL (70-100); HEMOGLOBIN A1c% 5.7 % (4.27-6.07)
[2025-01-13] MEDS: LOSARTAN 50 MG TABLET PO SCH (08:14)
[2025-01-13] MEDS: PRAVASTATIN 10 MG TABLET PO SCH (08:14)
[2025-01-13] MEDS: MULTIVITAMIN W/MINERALS TABLET PO SCH (08:14)
--- NOTE | 2025-01-13 08:14 | XRAY Report ---
PROCEDURE: XR Lumbar Spine 2-3V INDICATIONS: back pain TECHNIQUE: 3 views of the lumbar spine were acquired. COMPARISON: 02/11/2014. FINDINGS: Surgical change: None. Bones: 5 [id number] vertebrae are present. There is normal bony alignment. No vertebral body co mpression fractures. No suspicious bony lesions. Mild spondylitic changes are noted at L4-5 and L5-S 1 levels. Soft tissues: Overlying bowel gas pattern is normal. No suspicious soft tissue calcifications. IMPRESSION: No acute compression fracture or spondylolisthesis. Reviewed by: Stephen Hunter MD on 01/13/2025 8:12 AM PDT Approved by: Stephen Hunter MD on 01/13/2025 8:12 AM PDT Station ID: [id number]
[2025-01-13] MEDS: HEPARIN 5,000 UNIT/ML VIAL SUBQ SCH (08:15)
[2025-01-13] MEDS ORDERED: dexAMETHasone 4 MG TABLET PO SCH (09:00)
[2025-01-13] MEDS: CYANOCOBALAMIN 1,000 MCG/ML VIAL IM SCH (09:14)
[2025-01-13] MEDS: ACETAMINOPHEN 325 MG TABLET PO PRN (09:26)
--- NOTE | 2025-01-13 11:40 | PHARMACY PROGRESS NOTE ---
Best Possible Medication History Admit Date and Time: 01/13/25512 Home Medications Medication Instructions Recorded Confirmed Type gabapentin 600 mg tablet 600 mg PO TID 03/26/24 01/13/25 History (Neurontin) lovastatin 10 mg tablet 10 mg PO DAILY 03/26/24 01/13/25 History tizanidine 4 mg tablet 4 mg PO TID 03/26/24 01/13/25 History lidocaine HCl 4 % (40 mg/mL) 1 applic mucous membrane BID PRN 10/30/24 01/13/25 Rx mucosal solution pain #50 mL alprazolam 0.5 mg tablet 0.25 mg PO BID PRN anxiety 01/13/25 01/13/25 History buprenorphine HCl 2 mg sublingual 2 mg sublingual TID 01/13/25 01/13/25 History tablet bupropion HCl 150 mg 24 hr tablet, 150 mg PO DAILY 01/13/25 01/13/25 History extended release ibuprofen 800 mg tablet 800 mg PO TID PRN pain 01/13/25 01/13/25 History imipramine HCl 50 mg tablet 200 mg PO HS 01/13/25 01/13/25 History losartan 50 mg tablet 50 mg PO DAILY 01/13/25 01/13/25 History Processed by: Pharmacy (Medication reconciliation completed by [employer] Truck BuilderMaira) Medications reviewed in ED?: No Medication History completed: Yes Patient Interview: Completed Secondary Source(s): Insurance records [facility] Statement: As the person ultimately responsible for medication therapy, providers are able to order a medication from an existing home medication list in [facility] via the "Reconcile Routine" prior to Confirmation of that medication by production support engineer. Such practice is discouraged except when the physician, in their clinical judgment, deems that a medical need exists for a medication without regard to previous use.
[2025-01-13] MEDS ORDERED: oxyCODONE 30 MG TABLET PO PRN (12:17)
--- NOTE | 2025-01-13 13:13 | MRI Report ---
PROCEDURE: MRI Brain WO INDICATIONS: cva / tia / ams TECHNIQUE: Noncontrast axial T1 spin echo, axial T2 fast spin echo, sagittal and axial FLAIR, coronal T2 fast sp in echo, axial gradient echo, axial diffusion and ADC through the brain. COMPARISON: Correlation is made with the examining CT examinations. FINDINGS: Image quality: Excellent. CSF Spaces: Basal cisterns are patent. No extra-axial fluid collections. Ventricles are normal in size and shape. Brain: No intracranial masses or hemorrhage. Go/white matter interface is normal. Brainstem appe ars normal. Diffusion-weighted images demonstrate no acute ischemic insult. No chronic ischemic ins ults. Normal intravascular flow voids are present. Skull and face: Calvarium has normal marrow signal. Orbits appear normal. Sinuses: There is complete opacification of the left maxillary sinus. Moderate mucosal thickening can be seen elsewhere within the paranasal sinuses. No significant abnormal fluid can be seen within the mastoid air cells. IMPRESSION: No findings of acute or subacute infarction are seen. No prior territorial infarction can be seen. Additional findings: Complete opacification of the left maxillary sinus Reviewed by: Ramses Bustillos MD on 01/13/2025 12:12 PM AKDT Approved by: Ramses Bustillos MD on 01/13/2025 12:12 PM AKDT Station ID: [id number]
[2025-01-13] MEDS: GABAPENTIN 300 MG CAPSULE PO SCH (13:14)
[2025-01-13] MEDS: buPROPion XL 150 MG TABLET PO SCH (13:15)
[2025-01-13] MEDS: tiZANidine 4 MG TABLET PO SCH (13:15)
[2025-01-13] MEDS: oxyCODONE 5 MG TABLET PO PRN ×2 (13:15→19:17)
--- NOTE | 2025-01-13 13:24 | Ultrasound Report ---
PROCEDURE: US Renal (Retroperitoneal) INDICATIONS: mike TECHNIQUE: Real-time scanning was performed of the retroperitoneal organs, with image documentation. COMPARISON: None. FINDINGS: Kidneys: Kidneys are normal in size. Right kidney measures 11.7 cm long; left kidney measures 10.6 cm long. Right renal cortical thickness is 0.9 cm; left renal cortical thickness is 1.1 cm. No tomás d masses or hydronephrosis. Nonobstructing left renal stones measuring 5 and 7 mm. Right renal simpl e cyst measuring 2.4 cm. Bladder: Pre-void bladder volume is 253 mL. Patient states they are unable to void. Pre-void images demonstrate no intraluminal masses or stones. On pre-void images, bilateral ureteral jets are noted with color Doppler interrogation. (Of note, ureteral jets may not be detectable in up to 25% of caleb es due to insufficient differences in specific gravity between ureteral and bladder urine). Miscellaneous: No free abdominal fluid. IMPRESSION: 1.Nonobstructing left renal stones. No hydronephrosis. Kidneys are normal in echogenicity. 2.Bladder volume of 253 mL and patient states they are unable to void. Correlate for bladder outlet o bstruction. Reviewed by: Carlos Anna MD on 01/13/2025 1:22 PM PDT Approved by: Carlos Anna MD on 01/13/2025 1:22 PM PDT Station ID: [id number]
[2025-01-13] MEDS: BUPRENORPHINE/NALOXONE 8-2 MG TAB SL SCH (15:33)
[2025-01-13] MEDS: BUPRENORPHINE HCL 2 MG PO SCH (16:34)
--- NOTE | 2025-01-13 17:14 | ECHO Report ---
Version: 1 Study ID: [id number] [id number] Adult Echocardiogram Report Name: MICHEAL MONTERO Study Date: 01/13/2025, 12: 27 PM BP : 112 / 72 mmHg Patient Location: [facility] [place]^2206^[id number] HR: 103 bpm : 1975 (MM/DD/YYYY) Gender: Female He ight: 59 in Age: 50 Years Weight: 155.426 lb Reason For Study: ams History: Altered mental status, slurred speech, weakness, fall Procedure: A complete two-dimensional transthoracic echocardiogram was performed (2D, M-mode, Doppler and color flow Doppler). Indication: Evaluate for source of embolism. Agitated saline study performed by bedside RN. The study was done with the patient in the supine position, due to inability to lie on the left side. Interpretation Summary Global left ventricular systolic function is normal. The visual left ventricular ejection fraction is estimated at 60 to 65%. The right ventricle is normal size. The right ventricular systolic function is normal. No concerning cardiac valve disease is noted. Left Ventricle: The left ventricle is normal in size. There is normal left ventricular wall thickness. Global left ve ntricular systolic function is normal. The visual left ventricular ejection fraction is estimated at 60 to 65%. No regio nal wall motion abnormalities are present. Diastolic function could not be accurately assessed due to tachycardia. Right Ventricle: The right ventricle is normal size. The basal right ventricular diameter measured from a right ventri cular focused view is 3.3 cm. The right ventricular systolic function is normal. The tricuspid annular plane systolic ex cursion (TAPSE) measurement is 2.0 cm. Aortic Valve: The aortic valve is trileaflet. The aortic valve is mildly thickened. Aortic valve sclerosis is prese nt without stenosis. No aortic regurgitation is present. Mitral Valve: The mitral valve leaflets appear thickened, but with normal motion. No evidence of mitral stenosis is seen. There is trace mitral regurgitation. Tricuspid Valve: The tricuspid valve is normal in structure and function. Trace tricuspid regurgitation present. Pulmonic Valve: The pulmonic valve is normal in structure and function. Trace pulmonic valvular regurgitation is pres ent. Left Atrium: The left atrium is mildly dilated. The left atrial volume indexed to body surface area is 37 ml/m2. T his refers to the maximal volume measured prior to mitral valve opening. Right Atrium: Right atrial size is normal. The inferior vena cava is normal in diameter (<2.1cm) and there is compl ete collapse with inspiration (estimated right atrial pressure 0-5mmHg). Atrial Septum: Injection of agitated saline documented no interatrial shunt. Lipomatous hypertrophy of the interatri al septum is present. Aorta: The diameter of the ascending aorta is 2.8 cm. The aorta at the sinus of Valsalva measures 2.9cm. Pulmonary Artery: The pulmonary artery systolic pressure is normal. Pericardium/Pleural Space: There is no pericardial effusion. CPT Codes: 79013/[id number]: Transthoracic Echo with Spectral and Color Doppler. Doppler Measurements & Calculations Ao max P.5 mmHg Ao V2 max: 153.8 cm/sec LV V1 max: 136.6 cm/sec LV V1 max P.5 mmHg PA max P.7 mmHg PA V2 max: 96.3 cm/sec RAP systole: 5.0 mmHg TR max P.8 mmHg TR max christophe: 290.5 cm/sec MMode/2D Measurements & Calculations Ao root diam: 2.9 cm EDV(MOD-sp4): 53.1 ml EDV(sp4-el): 54.9 ml EF (est.): 63.9 % ESV(MOD-sp4): 20.2 ml ESV(sp4-el): 20.5 ml Heart Rate: 103.0 BPM Height (metric): 149.9 cm IVSd: 0.95 cm LAV(MOD-bp): 61.8 ml LAV(MOD-bp) Indexed: 37.3 ml/m² LAV(MOD-sp2): 62.5 ml LAV(MOD-sp4): 61.1 ml LVAd ap4: 21.1 cm² LVAs ap4: 11.9 cm² LVIDd: 3.8 cm LVIDs: 2.5 cm LVLd ap4: 6.9 cm LVLs ap4: 5.9 cm LVPWd: 0.90 cm Systolic Pressure: 112.0 mmHg TAPSE: 2.02 cm Other Measurements & Calculations Ao root diam: 2.9 cm Ao V2 max: 153.8 cm/sec BMI: 31.4 kilograms/m² BSA: 1.66 m² BSA([facility]): 1.74 m² Diastolic Pressure: 72.0 mmHg EDV(MOD-sp4): 53.1 ml EDV(sp4-el): 54.9 ml EDV(Teich): 62.3 ml EF (est.): 63.9 % EF(MOD-sp4): 61.9 % EF(sp4-el): 62.7 % EF(Teich): 63.9 % ESV(MOD-sp4): 20.2 ml ESV(sp4-el): 20.5 ml ESV(Teich): 22.5 ml FS: 34.1 % Heart Rate: 103.0 BPM Height (metric): 149.9 cm IVSd: 0.95 cm LAV(MOD-bp): 61.8 ml LAV(MOD-bp) Indexed: 37.3 ml/m² LAV(MOD-sp2): 62.5 ml LAV(MOD-sp4): 61.1 ml LV V1 max: 136.6 cm/sec LVAd ap4: 21.1 cm² LVAs ap4: 11.9 cm² LVIDd: 3.8 cm LVIDs: 2.5 cm LVLd ap4: 6.9 cm LVLs ap4: 5.9 cm LVPWd: 0.90 cm PA max P.7 mmHg PA V2 max: 96.3 cm/sec RAP systole: 5.0 mmHg RVSP(TR): 38.8 mmHg SV(MOD-sp4): 32.9 ml SV(sp4-el): 34.4 ml Systolic Pressure: 112.0 mmHg TAPSE: 2.02 cm TR max P.8 mmHg TR max christophe: 290.5 cm/sec TV max P.8 mmHg Weight (metric): 70.5 kg EDV(MOD-sp2): 44.7 ml EDV(sp2-el): 45.8 ml ESV(MOD-sp2): 12.8 ml ESV(sp2-el): 12.1 ml LVAd ap2: 19.1 cm² LVAs ap2: 9.0 cm² LVLd ap2: 6.8 cm LVLs ap2: 5.7 cm MD Alicia Moncada Dequan 01/13/2025, 5: 14 PM Ordering Physician: Yg Gutierrez Referring Physician: Buck Hdez Performed By: Niki Morse RDCS
[2025-01-13] MEDS: BENZOCAINE/MENTHOL LOZENGE MM PRN (17:33)
[2025-01-13] MEDS ORDERED: SODIUM CHLORIDE FLUSH 0.9% 10 ML SYRINGE IVP PRN (17:55)
[2025-01-13] MEDS: SODIUM CHLORIDE FLUSH 0.9% 10 ML SYRINGE IVP SCH (19:18)
[2025-01-13] MEDS: ALPRAZolam 0.25 MG TABLET PO PRN (19:49)
--- NOTE | 2025-01-13 21:17 | PROVIDER PROGRESS NOTE ---
Subjective Prog Note Date Prog Note Date: 01/13/25 Prog Note Time: 17:00 Subjective Subjective: persistent uncontrolled pain in L lower jaw/back teeth. Also chronic R foot and low back pain. Current Medications Current Medications Current Medications: Current Medications Generic Name Dose Route Start Last Admin Trade Name Freq PRN Reason Stop Dose Admin Acetaminophen 325 mg 01/13/25 05:15 01/13/25 17:33 Acetaminophen 325 Mg Tablet PO 325 mg Q4H PRN Administration pain, fever Albuterol 2.5 mg 01/13/25 07:00 01/13/25 19:38 Albuterol Neb 2.5 Mg/3 Ml INH Not Given RTQID SHERMAN Alprazolam 0.25 mg 01/13/25 12:28 01/13/25 19:49 Alprazolam 0.25 Mg Tablet PO 0.25 mg BID PRN Administration anxiety Benzonatate 100 mg 01/13/25 05:11 Benzonatate 100 Mg Capsule PO TID PRN Cough Budesonide 0.5 mg 01/13/25 07:00 01/13/25 19:38 Budesonide 0.5 Mg/2 Ml Neb INH Not Given RTBID SHERMAN Buprenorphine HCl 0.25 tab 01/13/25 15:00 01/13/25 15:33 Buprenorphine/Naloxone 8-2 Mg Tab SL 0.25 tab TID SHERMAN Administration Bupropion HCl 150 mg 01/13/25 13:00 01/13/25 13:15 Bupropion Xl 150 Mg Tablet PO 150 mg DAILY SHERMAN Administration Cyanocobalamin 1,000 mcg 01/13/25 09:00 01/13/25 09:14 Cyanocobalamin 1,000 Mcg/Ml Vial IM 01/15/25 09:01 1,000 mcg DAILY SHERMAN Administration Formoterol Fumarate 20 mcg 01/13/25 07:00 01/13/25 19:38 Formoterol Fumarate Neb 20 Mcg/2 Ml INH Not Given RTBID SHERMAN Gabapentin 600 mg 01/13/25 14:00 01/13/25 13:14 Gabapentin 300 Mg Capsule PO 600 mg TID SHERMAN Administration Heparin Sodium (Porcine) 5,000 unit 01/13/25 09:00 01/13/25 21:00 Heparin 5,000 Unit/Ml Vial SUBQ Not Given BID SHERMAN Sodium Chloride 1,000 mls @ 75 mls/hr 01/13/25 06:00 01/13/25 20:59 Normal Saline 0.9% IV Not Given .[id number] [facility] Losartan Potassium 50 mg 01/14/25 09:00 Losartan 50 Mg Tablet PO DAILY SHERMAN Melatonin 3 mg 01/13/25 05:15 Melatonin 3 Mg Tablet PO QPM PRN sleep Ondansetron HCl 4 mg 01/13/25 05:11 Ondansetron Odt 4 Mg Tablet TL Q6H PRN Nausea / Vomiting Oxycodone HCl 10 mg 01/13/25 18:59 01/13/25 19:17 Oxycodone 5 Mg Tablet PO 10 mg Q6HR PRN Administration Severe Pain (Level 7-10) Pravastatin Sodium 10 mg 01/13/25 09:00 01/13/25 08:14 Pravastatin 10 Mg Tablet PO 10 mg DAILY SHERMAN Administration Multivit/Folic Acid/Iron 1 tab 01/14/25 08:00 Vitamin Tablet PO DAILYWM [facility] Sodium Chloride 10 ml 01/14/25 01:00 01/13/25 19:18 Sodium Chloride Flush 0.9% 10 Ml Syringe IVP 10 ml 0100,0900,1700 SHERMAN Administration Sodium Chloride 10 ml 01/13/25 17:55 Sodium Chloride Flush 0.9% 10 Ml Syringe IVP PRN PRN Per Line Care protocol Throat Lozenges 1 lozenge 01/13/25 05:15 01/13/25 17:33 Benzocaine/Menthol Lozenge MM 1 lozenge Q2HR PRN Administration Mouth Sore Pain Tizanidine HCl 4 mg 01/13/25 14:00 01/13/25 13:15 Tizanidine 4 Mg Tablet PO 4 mg TID SHERMAN Administration Objective Vital Signs/Intake & Output Reviewed Vital Signs: Yes Vital Signs: Vital Signs x48h Temp Pulse Resp BP BP Pulse Ox 01/13/25 21:00 36.8 C 105 H 16 168/101 H 01/13/25 19:22 36.8 C 104 H 16 181/116 H 93 01/13/25 15:48 36.4 C L 107 H 16 174/105 H 96 01/13/25 13:48 36.7 C 106 H 18 182/111 H 190/112 H 98 Intake & Output: Intake & Output 01/10/25 01/11/25 01/12/25 04/15/25 23:59 23:59 23:59 23:59 Intake Total 2201 Output Total 50 / 50 Balance 2151 Weight (kg) 70.5 kg Objective Comments/Other: L lower back teeth tender to palpation, no purulence, no fluctuance, no skin changes on face, OP clear Lab Results 01/13/25 01:55 01/13/25 01:55 Other Labs: Lab Results x24hrs 01/13/25 01/13/25 Range/Units 03:40 01:55 WBC 10.7 (4.8-10.8) x10^3/uL RBC 3.49 L (4.20-5.40) 10^6/uL Hgb 10.5 L (12.0-16.0) g/dL Hct 34.2 L (37.0-47.0) % MCV 98.0 (81.0-99.0) fL MCH 30.1 (27.0-31.0) pg MCHC 30.7 L (32.0-36.0) g/dL RDW 13.8 (12.0-15.0) % Plt Count 449 (130-450) 10^3/uL MPV 9.8 (7.9-10.8) fL Neut # (Auto) 7.8 H (1.5-6.6) 10^3/uL Lymph # (Auto) 1.8 (1.5-3.5) 10^3/uL [place] # (Auto) 0.8 (0.0-1.0) 10^3/uL Eos # (Auto) 0.2 (0.0-0.7) 10^3/uL Baso # (Auto) 0.0 (0.0-0.1) 10^3/uL Absolute Nucleated RBC 0.00 x10^3/uL Nucleated RBC % 0.0 /100WBC Sodium 133 L (135-145) mmol/L Potassium 3.8 (3.5-4.5) mmol/L Chloride 103 (101-111) mmol/L Carbon Dioxide 22 (21-32) mmol/L Anion Gap 8.0 (6-13) BUN 19 (6-20) mg/dL Creatinine 1.5 H (0.6-1.3) mg/dL Estimated GFR (MDRD) 37 L (>89) Glucose 135 H (74-104) mg/dL Estimat Average Glucose 117 H (70-100) mg/dL Hemoglobin A1c % 5.7 (4.27-6.07) % Calcium 9.2 (8.5-10.3) mg/dL Magnesium 2.3 (1.7-2.3) mg/dL Total Bilirubin 0.2 (0.2-1.0) mg/dL AST 14 (10-42) IU/L ALT 9 L (10-60) IU/L Alkaline Phosphatase 68 (42-121) IU/L Total Protein 6.5 (6.4-8.9) g/dL Albumin 3.7 (3.2-5.5) g/dL Globulin 2.8 (2.1-4.2) g/dL Albumin/Globulin Ratio 1.3 (1.0-2.2) Triglycerides 104 mg/dL Cholesterol 125 ( - 200) mg/dL LDL Cholesterol, Calc 60 ( - 129) mg/dL VLDL Cholesterol 21 mg/dL HDL Cholesterol 44 L (60 - ) mg/dL LDL/HDL Ratio 1.4 (<4.4) Cholesterol/HDL Ratio 2.8 (<4.4) Lipase 12 (11-82) U/L Vitamin B12 124 L (180-914) pg/mL Folate 7.0 (5.90 - >24.8) ng/mL TSH 10.81 H (0.34-5.60) uIU/mL Urine Color YELLOW Urine Clarity CLEAR (CLEAR) Urine pH 6.0 (5.0-7.5) PH Ur Specific [place] <=1.005 (1.002-1.030) Urine Protein NEGATIVE (NEGATIVE) mg/dL Urine Glucose (UA) NEGATIVE (NEGATIVE) mg/dL Urine Ketones NEGATIVE (NEGATIVE) mg/dL Urine Occult Blood NEGATIVE (NEGATIVE) Urine Nitrite NEGATIVE (NEGATIVE) Urine Bilirubin NEGATIVE (NEGATIVE) Urine Urobilinogen 0.2 (NORMAL) (NORMAL) E.U./dL Ur Leukocyte Esterase TRACE H (NEGATIVE) Urine RBC 0-5 (0-5) /HPF Urine WBC 4-5 (0-5) /HPF Ur Squamous Epith Cells MANY Squamous H (<= Few) Urine Bacteria Few (None Seen) /HPF Ur Microscopic Review INDICATED Urine Culture Comments NOT INDICATED Urine Opiates Screen NEGATIVE (NEGATIVE) Ur Buprenorphine Scrn NEGATIVE (NEGATIVE) Ur Oxycodone Screen NEGATIVE (NEGATIVE) Urine Methadone Screen NEGATIVE (NEGATIVE) Ur Barbiturates Screen NEGATIVE (NEGATIVE) Ur Tricyclics Screen POSITIVE H (NEGATIVE) Ur Phencyclidine Scrn NEGATIVE (NEGATIVE) Ur Amphetamine Screen NEGATIVE (NEGATIVE) U Methamphetamines Scrn NEGATIVE (NEGATIVE) U Benzodiazepines Scrn NEGATIVE (NEGATIVE) Urine Cocaine Screen NEGATIVE (NEGATIVE) U Cannabinoids Screen NEGATIVE (NEGATIVE) Ur Drug Screen Comment CUTOFF CONC BELOW: Ethyl Alcohol < 10.0 mg/dL Assessment/Plan Problem List (1) Confused: (2) Memory deficit: Impression: - reviewed home meds with pharmacy- buprenorphine only opioid prescribed. Utox neg. - B12 deficiency may explain some of her neurologic symptoms- start B12 IM daily x 3 days - f/u FT4 - obtain vit D - evidence of dental abscess by history and exam. Recently finished cefdinir course. Start augmentin 875/125 BID. - pain control: resume buprenorphine (suboxone SL here), oxycodone prn, ketorolac prn - cont home gabapentin, tizanidine - remainder per H&P
[2025-01-13] MEDS: diphenhydrAMINE 25 MG CAPSULE PO PRN (21:50)
[2025-01-13] MEDS: AMOX/CLAV 875 MG/125 MG TABLET PO SCH (21:51)
[2025-01-14] MEDS: MELATONIN 3 MG TABLET PO PRN (00:07)
[2025-01-14] MEDS: LABETALOL 20 MG/4 ML SYRINGE IVP ONE (01:54)
[2025-01-14] MEDS: ACETAMINOPHEN 1,000 MG/100 ML 1,000 MG/100 ML BAG IV ONE (03:12)
[2025-01-14 07:35] LABS: ALBUMIN 3.6 g/dL (3.2-5.5); ALBUMIN/GLOBULIN RATIO 1.2 (1.0-2.2); BILIRUBIN,TOTAL 0.2 mg/dL (0.2-1.0); CALCIUM 8.8 mg/dL (8.5-10.3); CREATININE 0.8 mg/dL (0.6-1.3); CRP - C-REACTIVE PROTEIN 10.4 mg/dL (<0.5); MAGNESIUM 1.7 mg/dL (1.7-2.3); PHOSPHORUS 3.5 mg/dL (2.5-5.0); POTASSIUM 3.4 mmol/L (3.5-4.5); TOTAL PROTEIN 6.7 g/dL (6.4-8.9)
[2025-01-14 07:48] LABS: BASOPHILS % (AUTO) 0.4 %; EOSINOPHILS # (AUTO) 0.3 10^3/uL (0.0-0.7); EOSINOPHILS % (AUTO) 4.1 %; HCT - HEMATOCRIT 37.7 % (37.0-47.0); HGB - HEMOGLOBIN 12.4 g/dL (12.0-16.0); LYMPHOCYTES # (AUTO) 1.7 10^3/uL (1.5-3.5); LYMPHOCYTES % (AUTO) 21.8 %; MEAN CORPUSCULAR HEMOGLOBIN 30.8 pg (27.0-31.0); MEAN CORPUSCULAR HGB CONC 32.9 g/dL (32.0-36.0); MEAN CORPUSCULAR VOLUME 93.5 fL (81.0-99.0); MEAN PLATELET VOLUME 9.6 fL (7.9-10.8); MONOCYTES # (AUTO) 0.7 10^3/uL (0.0-1.0); MONOCYTES % (AUTO) 9.1 %; NEUTROPHILS # (AUTO) 4.9 10^3/uL (1.5-6.6); NEUTROPHILS % (AUTO) 64.3 %; PLT - PLATELET COUNT 489 10^3/uL (130-450); RED BLOOD COUNT 4.03 10^6/uL (4.20-5.40); RED CELL DISTRIBUTION WIDTH 13.3 % (12.0-15.0); WHITE BLOOD COUNT 7.6 x10^3/uL (4.8-10.8)
[2025-01-14] MEDS: BENZONATATE 100 MG CAPSULE PO PRN (08:52)
[2025-01-14] MEDS: amLODIPine 5 MG TABLET PO SCH (08:52)
[2025-01-14] MEDS: PRENATAL VITAMIN TABLET PO SCH (08:52)
[2025-01-14] MEDS: LOSARTAN 50 MG TABLET PO SCH (08:53)
[2025-01-14] MEDS: POTASSIUM CHLORIDE 20 MEQ TABLET PO ONE (08:58)
[2025-01-14] MEDS ORDERED: ALBUTEROL NEB 2.5 MG/3 ML INH PRN (12:01)
[2025-01-14] MEDS: BENZOCAINE SPRAY MM PRN (17:09)
[2025-01-14] MEDS: hydrALAZINE 25 MG TABLET PO ONE (17:10)
--- NOTE | 2025-01-14 18:03 | PROVIDER PROGRESS NOTE ---
Subjective Prog Note Date Prog Note Date: 01/14/25 Prog Note Time: 17:56 Subjective Pt reports feeling: No change Subjective: Continued jaw and tooth pain on L side upper and lower back teeth. Notes it is difficult for her to chew and open mouth so not wanting to eat. She is tolerating fluid intake without problems. Notes continued intermittent twitching, jerking that happens in all limbs but not at the same time in unpredictable patters. Notes continued episodes of brain fog and forgetfulness. No focal weakness in extremities. Never had tonic clonic seizure activity and never had a seizure that she is aware of. Pain better but remains uncontrolled, primarily in teeth. No problems urinating, no abd pain. Notes she feels much better when on imipramine and has been on and off this med for decades. Denies overdosing on imipramine. Reports she takes buprenorphine only as prescribed and has not run out at home. When asked about utox negative she states it must be an error or maybe she forgot to take her meds for a couple days. Current Medications Current Medications Current Medications: Current Medications Generic Name Dose Route Start Last Admin Trade Name Freq PRN Reason Stop Dose Admin Acetaminophen 325 mg 01/13/25 05:15 01/14/25 16:27 Acetaminophen 325 Mg Tablet PO 325 mg Q4H PRN Administration pain, fever Albuterol 2.5 mg 01/14/25 12:01 Albuterol Neb 2.5 Mg/3 Ml INH Q4HR PRN Wheezing Alprazolam 0.25 mg 01/13/25 12:28 01/14/25 16:28 Alprazolam 0.25 Mg Tablet PO 0.25 mg BID PRN Administration anxiety Amlodipine Besylate 5 mg 01/14/25 09:00 01/14/25 08:52 Amlodipine 5 Mg Tablet PO 5 mg DAILY SHERMAN Administration Amoxicillin/Clavulanate Potassium 1 tab 01/13/25 22:00 01/14/25 08:52 Amox/Clav 875 Mg/125 Mg Tablet PO 1 tab BID SHERMAN Administration Benzocaine 1 sprays 01/14/25 16:45 01/14/25 17:09 Benzocaine [place] MM 1 sprays Q4HR PRN Administration Mouth Sore Pain Benzonatate 100 mg 01/13/25 05:11 01/14/25 08:52 Benzonatate 100 Mg Capsule PO 100 mg TID PRN Administration Cough Buprenorphine HCl 0.25 tab 01/13/25 15:00 01/14/25 14:03 Buprenorphine/Naloxone 8-2 Mg Tab SL 0.25 tab TID SHERMAN Administration Bupropion HCl 150 mg 01/13/25 13:00 01/14/25 08:52 Bupropion Xl 150 Mg Tablet PO 150 mg DAILY SHERMAN Administration Cyanocobalamin 1,000 mcg 01/13/25 09:00 01/14/25 08:52 Cyanocobalamin 1,000 Mcg/Ml Vial IM 01/15/25 09:01 1,000 mcg DAILY SHERMAN Administration Diphenhydramine HCl 50 mg 01/13/25 21:17 01/14/25 16:26 Diphenhydramine 25 Mg Capsule PO 50 mg Q4HR PRN Administration Allergy Symptoms Gabapentin 600 mg 01/13/25 14:00 01/14/25 14:03 Gabapentin 300 Mg Capsule PO 600 mg TID SHERMAN Administration Heparin Sodium (Porcine) 5,000 unit 01/13/25 09:00 01/14/25 08:51 Heparin 5,000 Unit/Ml Vial SUBQ 5,000 unit BID SHERMAN Administration Imipramine HCl 200 mg 01/14/25 21:00 Imipramine 25 Mg Tablet PO HS [facility] Losartan Potassium 50 mg 01/14/25 09:00 01/14/25 08:53 Losartan 50 Mg Tablet PO 50 mg DAILY SHERMAN Administration Melatonin 3 mg 01/13/25 05:15 01/14/25 00:07 Melatonin 3 Mg Tablet PO 3 mg QPM PRN Administration sleep Ondansetron HCl 4 mg 01/13/25 05:11 Ondansetron Odt 4 Mg Tablet TL Q6H PRN Nausea / Vomiting Oxycodone HCl 10 mg 01/13/25 18:59 01/14/25 14:44 Oxycodone 5 Mg Tablet PO 10 mg Q6HR PRN Administration Severe Pain (Level 7-10) Pravastatin Sodium 10 mg 01/13/25 09:00 01/14/25 08:52 Pravastatin 10 Mg Tablet PO 10 mg DAILY SHERMAN Administration Multivit/Folic Acid/Iron 1 tab 01/14/25 08:00 01/14/25 08:52 Vitamin Tablet PO 1 tab DAILYWM SHERMAN Administration Sodium Chloride 10 ml 01/14/25 01:00 01/14/25 16:28 Sodium Chloride Flush 0.9% 10 Ml Syringe IVP 10 ml 0100,0900,1700 SHERMAN Administration Sodium Chloride 10 ml 01/13/25 17:55 Sodium Chloride Flush 0.9% 10 Ml Syringe IVP PRN PRN Per Line Care protocol Throat Lozenges 1 lozenge 01/13/25 05:15 01/14/25 16:28 Benzocaine/Menthol Lozenge MM 1 lozenge Q2HR PRN Administration Mouth Sore Pain Tizanidine HCl 4 mg 01/13/25 14:00 01/14/25 14:03 Tizanidine 4 Mg Tablet PO 4 mg TID SHERMAN Administration Objective Vital Signs/Intake & Output Reviewed Vital Signs: Yes Vital Signs: Vital Signs x48h Temp Pulse Resp BP BP Pulse Ox O2 Flow Rate 01/14/25 16:20 36.8 C 111 H 20 183/117 H 98 01/14/25 11:54 36.4 C L 102 H 17 178/114 H 94 0 Intake & Output: Intake & Output 01/11/25 01/12/25 01/13/25 01/14/25 23:59 23:59 23:59 23:59 Intake Total 2440 / 2440 1562 / 1562 Output Total 450 / 450 750 / 750 Balance 1989 812 / 812 Weight (kg) 70.5 kg Objective Comments/Other: middle aged woman sitting in bed, NAD, slcera anicteric, MMM, severely poor dentition, caries, tooth decay and dark discoloration througout, missing teeth L upper back, tenderness over L upper and lower back teeth, no fluctuance, no skin changes on face LCTAB, nonlabored RRR, S1S2, no edema abd soft, NT, ND, BS+ AAOx3, CN 2-12 intact, strength 5/5 UE and LE bilat, reports abnormal sensation on L side of face and L forearm and hand, otherwise normal. Normal tone, normal FNF, no tremor today (mild L hand tremor yesterday), occasionally looses train of thought Lab Results 01/14/25 07:07 01/14/25 07:07 Other Labs: Lab Results x24hrs 01/14/25 Range/Units 07:07 WBC 7.6 (4.8-10.8) x10^3/uL RBC 4.03 L (4.20-5.40) 10^6/uL Hgb 12.4 (12.0-16.0) g/dL Hct 37.7 (37.0-47.0) % MCV 93.5 (81.0-99.0) fL MCH 30.8 (27.0-31.0) pg MCHC 32.9 (32.0-36.0) g/dL RDW 13.3 (12.0-15.0) % Plt Count 489 H (130-450) 10^3/uL MPV 9.6 (7.9-10.8) fL Neut # (Auto) 4.9 (1.5-6.6) 10^3/uL Lymph # (Auto) 1.7 (1.5-3.5) 10^3/uL [place] # (Auto) 0.7 (0.0-1.0) 10^3/uL Eos # (Auto) 0.3 (0.0-0.7) 10^3/uL Baso # (Auto) 0.0 (0.0-0.1) 10^3/uL Absolute Nucleated RBC 0.00 x10^3/uL Nucleated RBC % 0.0 /100WBC ESR 45 H (0-20) mm/Hr Sodium 137 (135-145) mmol/L Potassium 3.4 L (3.5-4.5) mmol/L Chloride 108 (101-111) mmol/L Carbon Dioxide 21 (21-32) mmol/L Anion Gap 8.0 (6-13) BUN 8 (6-20) mg/dL Creatinine 0.8 (0.6-1.3) mg/dL Estimated GFR (MDRD) 76 L (>89) Glucose 113 H (74-104) mg/dL Calcium 8.8 (8.5-10.3) mg/dL Phosphorus 3.5 (2.5-5.0) mg/dL Magnesium 1.7 (1.7-2.3) mg/dL Total Bilirubin 0.2 (0.2-1.0) mg/dL AST 13 (10-42) IU/L ALT 8 L (10-60) IU/L Alkaline Phosphatase 68 (42-121) IU/L C-Reactive Protein 10.4 H (<0.5) mg/dL Total Protein 6.7 (6.4-8.9) g/dL Albumin 3.6 (3.2-5.5) g/dL Globulin 3.1 (2.1-4.2) g/dL Albumin/Globulin Ratio 1.2 (1.0-2.2) Assessment/Plan Problem List (1) Confused: Impression: 50 yo F with pmhx of etoh use disorder, chronic pain on buprenorphine, HTN, dental caries, trigeminal neuralgia presenting with generalized weakness, confusion, falls, slurred speech, word finding difficulty. 1. toxic/metabolic encephalopathy, generalized weakness, twitching/jerking movements, word finding difficulty, frequent falls: constellation of neurologic and complaints, some chronic, some more acute in recent days. Neuro exam largely unremarkable aside from episodes of forgetfulness/loss of train of thought, jerking in arms intermittently, diminished light touch sensation on L face and L arm. She does not appear particularly distressed by these symptoms and is focused on pain medication. Workup so far reveals B12 deficiency, elevated TSH. Brain MRI unremarkable- CVA ruled out. Doubt TIA given waxin and waning nature of vague complaints. DDx includes TCA side effects (imipramine), partial seizure, drug withdrawal, thyroid disfunction. Somatization/conversion disorder are possible. - monitor, serial neuro exam - consder transfer for EEG or outpt EEG - outpt neurology referral - treat B12, obtain FT4, obtain RPR, vit D - PT/OT in am 2. B12 deficiency: - IM B12 daily x 3 days, then po 3. L sided tooth pain, dental abscess: recent courses of doxycycline, cephalexin 3-4 mo ago, cefdinir end of November 2024. - augmentin x 5-7 days - needs teeth extracted- planning dental follow up 4. acute on chronic pain: home regimen includes buprenorphine buccal, ibuprofen 800 TID, tizanidine, gabapentin 600 TID. - cont suboxone TID - oxycodone 10 mg q 6 prn for acute pain - avoid NSAIDs given SHANNAN - cont tizaindine, gabapentin - [facility] Review[facility]- scripts from a couple providers consistently filled for buprenorphine and alprazolam. - resume imipramine, cont bupropion 5. SHANNAN: may have been due to NSAIDs. Resolved. - d/c ivf. encourage po intake. 6. HTN: BP uncontrolled, 190s/117 overnight. May be due in part to pain, withdrawal. - cont home losartain - add amlodipine 5 q day - po hydralazine or iv labetalol prn. Goal to correct gradually over few days. 7. abnormal thyroid tests: TSH 10. - obtain FT4 8. hypokalemia: poor po intake. - replete prn, trend BMP dvt ppx: lovenox Dispo plan and GOC: Came from home with intellectually disable son. Pending improvement in pain and neuro symptoms, PT eval.
[2025-01-14] MEDS: IMIPRAMINE 25 MG TABLET PO SCH (21:18)
[2025-01-15 06:09] LABS: RPR Non Reactive (Non Reactive)
[2025-01-15 06:11] LABS: CALCIUM 9.8 mg/dL (8.5-10.3); CREATININE 0.8 mg/dL (0.6-1.3); POTASSIUM 3.3 mmol/L (3.5-4.5)
[2025-01-15 08:09] LABS: VITAMIN D 25-HYDROXY 13.4 ng/mL (30.0-100.0)
[2025-01-15] MEDS: POTASSIUM CHLORIDE 20 MEQ/15 ML UDC PO ONE (08:11)
[2025-01-15] MEDS: ONDANSETRON ODT 4 MG TABLET TL PRN (09:03)
[2025-01-15 13:19] VITALS: BP 118/73; TEMP 96.8; O2SAT 93
[2025-01-15] MEDS: LEVOTHYROXINE 25 MCG TABLET PO SCH (14:13)
[2025-01-15] MEDS ORDERED: polyethylene glycoL 3350 17 GM PACKET PO SCH (17:00)
[2025-01-15] MEDS ORDERED: CHOLECALCIFEROL 5,000 UNIT CAPSULE PO SCH (17:00)
--- NOTE | 2025-01-15 19:32 | Discharge Summary ---
Discharge Summary Admit Date: 01/13/25 Discharge Date: 01/15/25 Discharging Provider: Dennis Temple MD Code Status: Attempt Resuscitation DIAGNOSES Admission Diagnoses: 1. toxic/metabolic encephalopathy 2. SHANNAN 3. generalized weakness 4. tobacco use disorder Discharge Diagnoses with Status of Each Condition: 1. toxic/metabolic encephalopathy, resolved 2. generalized weakness, twitching/jerking movements, word finding difficulty, frequent falls 3. B12 deficiency 4. L sided tooth pain, dental abscess: 5. acute on chronic pain 6. SHANNAN, resolved 7. HTN 8. Hypothyroidism 9. Hypokalemia 10. tobacco use disorder HPI History of Present Illness: 50 yo F with pmhx of etoh use disorder, chronic pain on buprenorphine, HTN, dental caries, trigeminal neuralgia presenting with generalized weakness, confusion, falls, slurred speech, word finding difficulty. pt reports waxing and waning confusion with slurred speech along with tingling and weakness of hands over past several months. denies any inciting factors and states she has not reported her symptoms to her pcp as she feels "embarrassed." she has not seen a neurologist as well. no recent fevers or chills. no chest pain. she smokes 0.5 ppd. denies any etoh or drug usage. she has been prescribed multiple pain meds and muscle relaxers, but states she does not take them all. she states that over last 24 hours, she has had difficulty with word finding and feels like she has "brain fog." Reported jaw and tooth pain on L side upper and lower back teeth. Notes it is difficult for her to chew and open mouth so not wanting to eat. Reports intermittent twitching, jerking that happens in all limbs but not at the same time in unpredictable patters. No focal weakness in extremities. Never had tonic clonic seizure activity and never had a seizure that she is aware of. No problems urinating, no abd pain. Notes she feels much better when on imipramine and has been on and off this med for decades. Denies overdosing on imipramine. HOSPITAL COURSE Hospital Course: 1. toxic/metabolic encephalopathy, generalized weakness, twitching/jerking movements, word finding difficulty, frequent falls: constellation of neurologic and complaints, some chronic, some more acute in recent days. Neuro exam largely unremarkable aside from episodes of forgetfulness/loss of train of thought, jerking in arms intermittently, diminished light touch sensation on L face and L arm. She does not appear particularly distressed by these symptoms and is focused on pain medication. Workup revealed B12 deficiency, elevated TSH, low FT4. Brain MRI unremarkable- CVA ruled out. Doubt TIA given waxing and waning nature of vague complaints. DDx includes TCA side effects (imipramine), partial seizure, drug withdrawal, thyroid disfunction. Somatization/conversion disorder are possible. The pt's symptoms improved over 24-48 hrs. She was able to ambulate with PT without problems. Plan to treat the acute diagnoses below and arrange close outpt follow up. If symptoms recur or persist she may require further outpt work-up, such as EEG and neurology referral. 2. B12 deficiency: B12 level 124. IM B12 given daily x 3 days, then prescribed 1,000 mcg po daily on discharge. 3. L sided tooth pain, dental abscess: recent courses of doxycycline, cephalexin 3-4 mo ago, cefdinir end of November 2024. Treated with augmentin for 7 day course. needs teeth extracted- planning dental follow up. 4. acute on chronic pain: home regimen includes buprenorphine buccal, ibuprofen 800 TID, tizanidine, gabapentin 600 TID. Reports she takes buprenorphine only as prescribed and has not run out at home. When asked about utox negative she states it must be an error or maybe she forgot to take her meds for a couple days. We continued suboxone here and resumed home tizanidine, gabapentin, imipramine, bupropion. Held NSAIds given SHNANAN. Treated acute dental pain with oxycodone which pt requested high doses of due to persistent uncontrolled pain. Pain was tolerable and improved at time of discharge. Prescribed short course of oxycodone prn. Pt follows with [facility]- Celestina Casey. I discussed her case with Celestina and arranged follow up for next week in her clinic. The pt displayed some behaviors that may indicate narcotic seeking, as noted above in description of vague neurologic presentation, recurrent visits for dental pain, negative utox for buprenorphine despite prescription. 5. SHANNAN: may have been due to NSAIDs (800 mg ibuprofen TID). Resolved with iv fluids. Would decrese NSAID use at home. 6. HTN: BP uncontrolled, up to 190s systolic. May be due in part to pain, withdrawal. She was continued on home losartan. Amlodipine was started. She also received prn doses of iv and po hydralazine. On day of discharge BP had normalized to 110s/80s. 7. hypothyroidism: TSH 10, FT4 0.52. New diagnosis. Started synthroid 50 mcg dialy. 8. hypokalemia: poor po intake. Improved prior to discharge and expect to normalized with improved po intake. ALLERGIES Allergies Allergy/AdvReac Type Severity Reaction Status Date / Time Penicillins Allergy Intermediate Itching Verified 01/13/25 01:14 codeine Allergy Mild Rash Verified 01/13/25 01:14 Sulfa (Sulfonamide Allergy Mild mouth sores Verified 01/13/25 01:14 Antibiotics) MEDICATIONS Ambulatory Orders Medication Instructions Recorded Confirmed lovastatin 10 mg tablet 10 mg PO DAILY 03/26/24 01/13/25 lidocaine HCl 4 % (40 mg/mL) 1 applic mucous membrane BID PRN 10/30/24 01/13/25 mucosal solution pain #50 mL alprazolam 0.5 mg tablet 0.25 mg PO BID PRN anxiety 01/13/25 01/13/25 buprenorphine HCl 2 mg sublingual 2 mg sublingual TID 01/13/25 01/13/25 tablet bupropion HCl 150 mg 24 hr tablet, 150 mg PO DAILY 01/13/25 01/13/25 extended release imipramine HCl 50 mg tablet 200 mg PO HS 01/13/25 01/13/25 losartan 50 mg tablet 50 mg PO DAILY 01/13/25 01/13/25 amlodipine 5 mg tablet 5 mg PO DAILY #30 tabs 01/15/25 amoxicillin 875 mg-potassium 1 tab PO BID 5 days #10 tabs 01/15/25 clavulanate 125 mg tablet cyanocobalamin (vitamin B-12) 500 1,000 mcg (2 x 500 mcg) PO DAILY 01/15/25 mcg tablet #30 tabs gabapentin 600 mg tablet 600 mg PO TID #90 tabs 01/15/25 01/13/25 (Neurontin) levothyroxine 25 mcg tablet 50 mcg (2 x 25 mcg) PO QDAC #30 01/15/25 tabs oxycodone 10 mg tablet 10 mg PO Q8H PRN pain, severe #16 01/15/25 tabs tizanidine 4 mg tablet 4 mg PO TID #90 tabs 01/15/25 01/13/25 PHYSICAL EXAM AT DISCHARGE Vital Signs: Vital Signs x48h Temp Pulse Resp BP Pulse Ox 01/15/25 13:00 36.0 C L 95 18 118/73 93 Physical Exam Other/Comments: middle aged woman sitting in bed, NAD, slcera anicteric, MMM, severely poor dentition, caries, tooth decay and dark discoloration througout, missing teeth L upper back, tenderness over L upper and lower back teeth, no fluctuance, no skin changes on face LCTAB, nonlabored RRR, S1S2, no edema abd soft, NT, ND, BS+ AAOx3, CN 2-12 intact, strength 5/5 UE and LE bilat, Normal tone, normal FNF, no tremor, answers questions appropriately, normal thought process and content LABS 01/14/25 07:07 01/15/25 05:28 TIME SPENT Time Spent in Discharge (Minutes): 35 Discharge Plan Discharge Patient Disposition: 01 Home, Self Care Condition: Stable Medically Cleared Date:: 01/15/25 Prescriptions: New amlodipine 5 mg Tablet 5 mg PO DAILY Qty: 30 0RF amoxicillin-pot clavulanate 875-125 mg Tablet 1 tab PO BID 5 Days Qty: 10 0RF cyanocobalamin (vitamin B-12) 500 mcg Tablet 1,000 mcg PO DAILY Qty: 30 0RF levothyroxine 25 mcg Tablet 50 mcg PO QDAC Qty: 30 0RF oxycodone 10 mg tablet 10 mg PO Q8H PRN (Reason: pain, severe) Qty: 16 0RF Continued lovastatin 10 MG tablet 10 mg PO DAILY lidocaine HCl 4 % (40 mg/mL) solution 1 applic mucous membrane BID PRN (Reason: pain) Qty: 50 0RF losartan 50 mg tablet 50 mg PO DAILY Patient Comments: TAKE ONE TABLET BY MOUTH ONE TIME DAILY imipramine HCl 50 mg tablet 200 mg PO HS Patient Comments: TAKE FOUR TABLETS BY MOUTH NIGHTLY AT BEDTIME buprenorphine HCl 2 mg tablet, sublingual 2 mg SUBLINGUAL TID Patient Comments: Dissolve 1 tablet sublingually 3 times daily for 28 days bupropion HCl 150 mg tablet extended release 24 hr 150 mg PO DAILY Patient Comments: TAKE ONE TABLET BY MOUTH EVERY MORNING alprazolam 0.5 mg tablet 0.25 mg PO BID PRN (Reason: anxiety) Patient Comments: TAKE 1/2 TABLET BY MOUTH TWICE DAILY NEEDED gabapentin [Neurontin] 600 MG tablet 600 mg PO TID Qty: 90 0RF tizanidine 4 MG tablet 4 mg PO TID Qty: 90 0RF Discontinued ibuprofen 800 mg tablet 800 mg PO TID PRN (Reason: pain) Patient Comments: Take 1 tablet by mouth every 8 hours with food or milk as needed Diet: Regular Interventions: Discharge Last Done: 01/15/25 16:04 Discharge Checklist - Nursing Last Done: 01/15/25 16:04 Plan of Treatment: Continue taking antibiotic (augmentin) to complete the entire course for dental abscess. It is important that you follow up with a dentist to have teeth extracted and other treatments. Follow up with your pain management clinic as scheduled. Contact your primary care provider or return to the hospital if you have fevers, difficulty eating and drinking, fainting, confusion, or for any other concerns. Print Language: Italian Patient Instructions: ED Abscess Tooth Follow-up Care: CELESTINA CASEY PA [Physician No Access] - 01/22/25 9:00 am (An appointment has been made at the [facility]: [id number] [place] [address])
[2025-01-16] MEDS ORDERED: CYANOCOBALAMIN 500 MCG TABLET PO SCH (09:00)
== END 2025-01-15 16:06 | disposition home or self-care (01) ==
LOC: ED 01:02 → MS2 01:02
PROVIDERS: ADMIT Student in an Organized Health Care Education/Training Program; ATTEND Student in an Organized Health Care Education/Training Program
DX: I10 Essential (primary) hypertension; G25.3 Myoclonus; G50.0 Trigeminal neuralgia; I95.9 Hypotension, unspecified; G92.8 Other toxic encephalopathy; Z91.81 History of falling; K04.7 Periapical abscess without sinus; R53.1 Weakness; N17.9 Acute kidney failure, unspecified; F17.210 Nicotine dependence, cigarettes, uncomplicated; E03.9 Hypothyroidism, unspecified; M54.50 Low back pain, unspecified; E53.8 Deficiency of other specified B group vitamins; E87.6 Hypokalemia; G89.29 Other chronic pain; R47.89 Other speech disturbances; M79.671 Pain in right foot